=== PATIENT | female | born 1990 | race Caucasian/White ===

== ENCOUNTER 2017-05-26 10:16 | Emergency (ER) | payer MEDICAID ==
[2017-05-26] MEDS ORDERED: NORMAL SALINE 1000 ML 2,000 ML IV ONE (10:22)
[2017-05-26] MEDS ORDERED: ONDANSETRON HCL INJ/PF 4 MG/2 ML SDV IV ONE (10:23)
[2017-05-26] MEDS ORDERED: LORAZEPAM INJ 2 MG/1 ML VIAL IV ONE ×2 (10:35→10:40)
[2017-05-26] MEDS ORDERED: LORAZEPAM INJ 2 MG/1 ML VIAL IM ONE (10:36)
--- NOTE | 2017-05-26 10:38 | ER Document Report ---
ED Neuro Symptoms/Deficit - General Stated Complaint: POSSIBLE SEIZURE Time Seen by Provider: 05/26/17 10:22 Mode of Arrival: Medic Information source: Friend - Male significant other Notes: 27-year-old female brought in by EMS after having a seizure at 930 this morning. She has NOT been taking her antiseizure medication Keppra. She is uncooperative, ranging from somnolence to resisting vital signs, IV. She sees Dr. Bradley. Her significant other recently got back with her 2 weeks ago and she has a 3-month-old baby. Her boyfriend states that she acts like this after seizures. TRAVEL OUTSIDE OF THE [place] IN LAST 30 DAYS: No - Related Data Allergies/Adverse Reactions: loratadine [From Claritin] Allergy (Verified 11/08/15 19:57) Sulfa (Sulfonamide Antibiotics) Allergy (Verified 11/08/15 19:57) Past Medical History - General Information source: Friend - boyfriend - Social History Smoking Status: Unknown if Ever Smoked Frequency of alcohol use: None Drug Abuse: None Family History: Reviewed & Not Pertinent Pulmonary Medical History: Reports: Hx Bronchitis, Hx COPD Neurological Medical History: Reports: Hx Seizures Renal/ Medical History: Reports: Hx Kidney Stones Past Surgical History: Reports: Hx Tonsillectomy - Immunizations Immunizations up to date: Yes Hx Diphtheria, Pertussis, Tetanus Vaccination: Yes - 01/27/2014 Review of Systems - Review of Systems Constitutional: See HPI EENT: No symptoms reported Cardiovascular: No symptoms reported Respiratory: No symptoms reported Gastrointestinal: No symptoms reported Genitourinary: No symptoms reported Female Genitourinary: No symptoms reported Musculoskeletal: No symptoms reported Skin: No symptoms reported Hematologic/Lymphatic: No symptoms reported Neurological/Psychological: See HPI Physical Exam - Vital signs Vitals: Resp 18 05/26/17 10:26 Interpretation: Normal - General General appearance: Alert, Combative, Other - somnolent - HEENT Head: Normocephalic, Atraumatic Eyes: Normal Pupils: PERRL - Respiratory Respiratory status: No respiratory distress Chest status: Nontender Breath sounds: Normal Chest palpation: Normal - Cardiovascular Rhythm: Regular Heart sounds: Normal auscultation Murmur: No - Abdominal Inspection: Normal Distension: No distension Bowel sounds: Normal Tenderness: Nontender. No: Tender Organomegaly: No organomegaly - Back Back: Normal, Nontender - Extremities General upper extremity: Normal inspection, Nontender, Normal color, Normal ROM , Normal temperature General lower extremity: Normal inspection, Nontender, Normal color, Normal ROM , Normal temperature, Normal weight bearing. No: Gillian's sign - Neurological Neuro grossly intact: Yes Cognition: Normal Orientation: AAOx4 Saige Coma Scale Eye Opening: Spontaneous Saige Coma Scale Verbal: Oriented [place] Coma Scale Motor: Obeys Commands [place] Coma Scale Total: 15 Speech: Normal Motor strength normal: LUE, RUE, LLE, RLE Sensory: Normal - Psychological Associated symptoms: Normal affect, Normal mood - Skin Skin Temperature: Warm Skin Moisture: Dry Skin Color: Normal Skin irregularity: negative: Rash Course - Re-evaluation Re-evalutation: 05/26/17 11:[address] henderson for work up 05/26/17 11:24 EMS brought another patient and they definitely had her take for Keppra pills before they left the house- 2000 mg po so the IV dose was cancelled. 05/26/17 11:26 05/26/17 12:[address] negative, pt resting. drug scree + benzo (versed) and + marijuana 05/26/17 12:42 Patient continues to sleep, no seizure activity since she has been in the emergency department, vital signs are stable, I did contact her significant other Elizabeth at [phone] and he will return [place] friend will pick them up when she is ready to be discharged. 05/26/17 14:00 elizabeth is back, she awoke and drank some water. vitals stable will discharge home with prescription for keppra. labs OK. keppra level pending 05/26/17 14:04 - Vital Signs Vital signs: Temp Pulse Resp BP Pulse Ox 98.4 F 18 110/74 98 05/26/17 10:40 05/26/17 14:15 05/26/17 14:15 05/26/17 14:15 - Laboratory Result Diagrams: 05/26/17 10:50 05/26/17 10:50 Laboratory results interpreted by me: 05/26/17 05/26/17 05/26/17 10:50 10:50 10:50 WBC RDW Seg Neutrophils % Lymphocytes % Absolute Neutrophils Glucose 116 H Magnesium 2.7 H Urine Protein 100 H Urine Blood SMALL H Acetaminophen < 10 L 05/26/17 10:50 WBC 12.2 H RDW 14.9 H Seg Neutrophils % 88.6 H Lymphocytes % 7.4 L Absolute Neutrophils 10.8 H Glucose Magnesium Urine Protein Urine Blood Acetaminophen Discharge - Discharge Clinical Impression: seizure, Non compliance w medication regimen Condition: Good Disposition: HOME, SELF-CARE Instructions: Seizure, Known Epileptic ([facility]) Additional Instructions: See Dr. Bradley for follow-up Return to the emergency room any worsening of your symptoms TAKE YOUR MEDICATION DAILY do not smoke marijuana Please complete the patient satisfaction survey if you get one, and return it.. If you do not receive a survey, then you can go to the [facility] website, [email or web address] and place your comments about your very good care. Thank you very much. It was a pleasure being your medical provider today. Prescriptions: Levetiracetam [Keppra 500 mg Tablet] 2,000 mg PO QHS #30 tablet Referrals: MIGDALIA BRADLEY MD [ACTIVE STAFF] - Follow up tomorrow
[2017-05-26] MEDS ORDERED: LEVETIRACETAM 1,000 MG in NORMAL SALINE 100 ML IV SCH (11:00)
[2017-05-26 11:19] LABS: APPEARANCE,URINE SLIGHTLY-CLOUDY; BILIRUBIN,URINE NEGATIVE (NEGATIVE); GLUCOSE, URINE NEGATIVE (NEGATIVE); KETONES,URINE NEGATIVE (NEGATIVE); LEUKOCYTE ESTERASE,URINE NEGATIVE (NEGATIVE); NITRITE,URINE NEGATIVE (NEGATIVE); PROTEIN,URINE 100 mg/dL (NEGATIVE); URINE SPECIFIC GRAVITY 1.016; UROBILINOGEN,URINE NEGATIVE mg/dL (<2.0)
[2017-05-26 11:21] LABS: MAGNESIUM 2.7 mg/dL (1.6-2.3)
--- NOTE | 2017-05-26 11:30 | RADIOLOGY REPORT (SQ) ---
EXAM DESCRIPTION: CT HEAD WITHOUT COMPLETED DATE/TIME: 05/26/2017 11:18 am REASON FOR STUDY: altered level of consciousness COMPARISON: February 2016 TECHNIQUE: Axial images acquired through the brain without intravenous contrast. Images reviewed wi th bone, brain and subdural windows. Images stored on PACS. All CT scanners at this facility use dose modulation, iterative reconstruction, and/or weight based d osing when appropriate to reduce radiation dose to as low as reasonably achievable (ALARA). [facility]: Dose Right [facility]: CareDose [facility]: Dose Right [facility]: Teradose 4D [facility]: [employer] RADIATION DOSE: Up-to-date CT equipment and radiation dose reduction techniques were employed. CTDIv ol: 49.0 mGy. DLP: 1762 mGy-cm. mGy. LIMITATIONS: Motion artifact is identified. FINDINGS: VENTRICLES: Normal size and contour. CEREBRUM: No masses. No hemorrhage. No midline shift. No evidence for acute infarction. Normal gra y/white matter differentiation. No areas of low density in the white matter. CEREBELLUM: No masses. No hemorrhage. No alteration of density. No evidence for acute infarction. EXTRAAXIAL SPACES: No fluid collections. No masses. ORBITS AND GLOBE: No intra- or extraconal masses. Normal contour of globe without masses. CALVARIUM: No fracture. PARANASAL SINUSES: Small mucosal polyp retention cyst is identified in the left maxillary antra. SOFT TISSUES: No mass or hematoma. OTHER: No other significant finding. IMPRESSION: NORMAL BRAIN CT WITHOUT CONTRAST. EVIDENCE OF ACUTE STROKE: NO. COMMENT: Quality ID # [id number]: Final reports with documentation of one or more dose reduction techniques (e.g., Automated exposure control, adjustment of the mA and/or kV according to patient size, use of iterative reconstruction technique) TECHNICAL DOCUMENTATION: JOB ID: [id number]- All Rights Reserved
[2017-05-26 11:32] LABS: URINE BARBITURATES SCREEN NEGATIVE; URINE METHADONE SCREEN NEGATIVE; URINE OPIATES LOW NEGATIVE; URINE PHENCYCLIDINE SCREEN NEGATIVE
[2017-05-26 12:16] LABS: ABSOLUTE LYMPHOCYTES (AUTO) 0.9 10^3/uL (0.5-4.7); ABSOLUTE MONOCYTES (AUTO) 0.5 10^3/uL (0.1-1.4); ABSOLUTE NEUT (AUTO) 10.8 10^3/uL (1.7-8.2); BASOPHILS % (AUTO) 0.1 % (0-2); HEMATOCRIT 39.9 % (36.0-47.0); HEMOGLOBIN 13.4 g/dL (12.0-15.5); HGB HCT DIFFERENCE 0.3; LYMPHOCYTES % (AUTO) 7.4 % (13-45); MEAN CORPUSCULAR HEMOGLOBIN 29.7 pg (27.0-33.4); MEAN CORPUSCULAR HGB CONC 33.7 g/dL (32.0-36.0); MEAN CORPUSCULAR VOLUME 88 fl (80-97); MONOCYTES % (AUTO) 3.9 % (3-13); RED BLOOD COUNT 4.52 10^6/uL (3.72-5.28); RED CELL DISTRIBUTION WIDTH 14.9 % (11.5-14.0); SEGMENTED NEUTROPHILS % (AUTO) 88.6 % (42-78); WHITE BLOOD COUNT 12.2 10^3/uL (4.0-10.5)
[2017-05-26 12:54] LABS: ALANINE AMINOTRANSFERASE 22 U/L (9-52); ALBUMIN 4.6 g/dL (3.5-5.0); ALKALINE PHOSPHATASE 72 U/L (38-126); ANION GAP 14 (5-19); ASPARTATE AMINO TRANSFERASE 20 U/L (14-36); BILIRUBIN,DIRECT 0.4 mg/dL (0.0-0.4); BILIRUBIN,TOTAL 0.5 mg/dL (0.2-1.3); BLOOD UREA NITROGEN 15 mg/dL (7-20); CARBON DIOXIDE 23 mmol/L (22-30); CHLORIDE 103 mmol/L (98-107); CREATININE RESULT 0.74 mg/dL (0.52-1.25); GLUCOSE 116 mg/dL (75-110); POTASSIUM 4.1 mmol/L (3.6-5.0); SODIUM 140.3 mmol/L (137-145); TOTAL PROTEIN 7.2 g/dL (6.3-8.2)
[2017-05-26 14:24] VITALS: BP 110/74
== END 2017-05-26 14:18 | disposition home or self-care (01) ==
LOC: ER 10:16
DX: G40.909 Epilepsy, unspecified, not intractable, without status epilepticus (principal); Z91.14 Patient's other noncompliance with medication regimen; J44.9 Chronic obstructive pulmonary disease, unspecified; Z88.2 Allergy status to sulfonamides; Z87.442 Personal history of urinary calculi
CPT/HCPCS: 99284; 96361; 96374; 96375; 36415; 87040; 87086; 80177; 83735; 80307 ×2; 84703; 85025; 80053; 81001; 70450; J2060; J2405; J7030

== ENCOUNTER 2017-07-27 17:02 | Emergency (ER) | payer MEDICAID ==
[2017-07-27 17:45] LABS: ABSOLUTE MONOCYTES (AUTO) 0.5 10^3/uL (0.1-1.4); ABSOLUTE NEUT (AUTO) 9.8 10^3/uL (1.7-8.2); BASOPHILS % (AUTO) 0.1 % (0-2); HEMATOCRIT 40.7 % (36.0-47.0); HEMOGLOBIN 13.8 g/dL (12.0-15.5); HGB HCT DIFFERENCE 0.7; LYMPHOCYTES % (AUTO) 8.6 % (13-45); MEAN CORPUSCULAR HEMOGLOBIN 31.1 pg (27.0-33.4); MEAN CORPUSCULAR HGB CONC 33.9 g/dL (32.0-36.0); MEAN CORPUSCULAR VOLUME 92 fl (80-97); MONOCYTES % (AUTO) 4.2 % (3-13); RED BLOOD COUNT 4.43 10^6/uL (3.72-5.28); RED CELL DISTRIBUTION WIDTH 13.6 % (11.5-14.0); SEGMENTED NEUTROPHILS % (AUTO) 87.1 % (42-78); WHITE BLOOD COUNT 11.2 10^3/uL (4.0-10.5)
[2017-07-27 17:58] LABS: ALANINE AMINOTRANSFERASE 25 U/L (9-52); ALBUMIN 4.8 g/dL (3.5-5.0); ALKALINE PHOSPHATASE 52 U/L (38-126); ANION GAP 16 (5-19); ASPARTATE AMINO TRANSFERASE 25 U/L (14-36); BILIRUBIN,DIRECT 0.4 mg/dL (0.0-0.4); BILIRUBIN,TOTAL 0.8 mg/dL (0.2-1.3); BLOOD UREA NITROGEN 16 mg/dL (7-20); CALCIUM 9.8 mg/dL (8.4-10.2); CARBON DIOXIDE 27 mmol/L (22-30); CHLORIDE 102 mmol/L (98-107); CREATININE RESULT 0.87 mg/dL (0.52-1.25); GLUCOSE 98 mg/dL (75-110); POTASSIUM 4.2 mmol/L (3.6-5.0); SODIUM 144.6 mmol/L (137-145); TOTAL PROTEIN 7.5 g/dL (6.3-8.2)
[2017-07-27 17:59] LABS: ALCOHOL < 10 mg/dL (NONE DETECTED)
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
[2017-07-28 06:02] VITALS: BP 101/59
--- NOTE | 2017-07-29 06:02 | EKG REPORT ---
SEVERITY:- NORMAL ECG - SINUS RHYTHM : Confirmed by: Angie Urias MD 29-Jul-2017 06:01:00
== END 2017-07-28 06:00 | disposition home or self-care (01) ==
LOC: ER 17:02
DX: R56.9 Unspecified convulsions (principal); F99 Mental disorder, not otherwise specified; J44.9 Chronic obstructive pulmonary disease, unspecified; Z59.0 Homelessness; Z87.442 Personal history of urinary calculi; Z78.1 Physical restraint status
CPT/HCPCS: 36415; 80053; 80307; 85025; 93005; 93010; 99284